=== PATIENT | female | born 1960 | race Caucasian/White ===

== ENCOUNTER 2017-07-13 07:50 | Inpatient (IN) ==
[2017-07-13] MEDS ORDERED: PNEUMOCOCCAL 23 VACCINE 25 MCG/0.5 ML VIAL IM ONE (11:03)
--- NOTE | 2017-07-13 12:54 | CONSULT ---
Consult Note - Consult Consult Date: 07/13/17 Reason for Consult: PreOp Consulation : General Surgery Requesting Physician: Dr. Mayfield Primary Care Provider: TALAT MADSEN - History of Present Illness History of Present Illness: This is a 57-year-old female who I been asked to evaluate for possible small bowel obstruction secondary to Crohn's disease. Patient initially was seen in the hospital and less [place]. At that point she had a flatplate and upright of the abdomen which showed bowel obstruction. Patient subsequent had a CT scan with IV contrast but no oral contrast which was read as a thickened bowel and possible bowel obstruction. Unfortunately the CAT scans and x-rays did not accompany the patient on transfer. When talking to the patient she states that she actually is feeling better after the NG tube was placed. She initially went to the hospital because she has have an increasing abdominal pain. She states her abdomen is distended. Patient was nauseated but has not thrown up. Patient's last bowel movement was today. Her discomforts actually started last night the day prior to admission. Patient is have a long standing history of Crohn's disease. She states she's had 1 bowel resection secondary to this. Patient also had a hysterectomy. Patient had a incisional hernia repair with mesh. Subsequent the mesh had to be removed. Review of Systems - Constitutional Constitutional: REPORTS: Negative System Review - Integumentary Integumentary: REPORTS: Negative System Review - Eye Exam Eye Exam: REPORTS: Negative System Review - Ear/Nose Exam Ear/Nose Exam: REPORTS: Negative System Review - Mouth/Throat Mouth/Throat Exam: REPORTS: Negative System Review - Respiratory Respiratory: REPORTS: Other (Patient has a history of COPD) - Cardiovascular Cardiovascular: REPORTS: Negative System Review - Gastrointestinal Gastrointestinal / Abdominal: REPORTS: Nausea - Genitourinary Genitourinary: REPORTS: Negative System Review - Gynecological Gynecological: REPORTS: Negative System Review - Musculoskeletal Musculoskeletal: REPORTS: Negative System Review - Neurological Neurologic: REPORTS: Negative System Review - Psychiatric Psychiatric: REPORTS: Negative System Review Past Medical History Medical History: copd,chron, Surgical History: Bowel resection, hysterectomy, ventral hernia repair, removal of mesh Tobacco Use: Current Every Day Smoker In the Past 12 Months, Have Used or Abuse Any of the Following Substance: None Medication / Allergies Allergies/Adverse Reactions: Allergies 3 Allergy/AdvReac Type Severity Reaction Status Date / Time azithromycin [From Zithromax] Allergy RASH Verified 07/13/17 11:32 doxycycline Allergy RASH Verified 07/13/17 11:32 prednisone AdvReac VOMITING Verified 07/13/17 11:31 Exam - Vitals Vital Signs: Vital Signs Temperature 97.8 F Temperature Source Temporal Artery Scan Pulse Rate [Pulse Oximeter] 91 Pulse Rate 86 Respiratory Rate 16 Blood Pressure [Right Arm] 118/75 Blood Pressure 97/59 Pulse Ox 92 Oxygen Flow Rate 8 Oxygen Delivery Method Blow-By Height 5 ft 8 in Weight 106 lb 12.8 oz - General General Appearance: No Acute Distress, Cooperative - Head Head Exam: Normal Inspection - Eye Eye Exam: POSITIVE: Normal Appearance, PERRL - Respiratory Respiratory Exam: POSITIVE: Clear to Auscultation - Bilaterally, Breathing Non Labored - Cardiovascular Cardiovascular Exam: POSITIVE: No Murmur - GI/Abdominal GI/Abdominal Exam: POSITIVE: Normal Bowel Sounds, Non Tender, Non Distended, Soft - Rectal Rectal Exam: POSITIVE: Deferred - External Exam: POSITIVE: Deferred Assessment and Plan - Patient Problems (1) Small intestine obstruction Current Visit: Yes Status: Acute Code(s): K56.609 - Unspecified intestinal obstruction, unspecified as to partial versus complete obstruction (2) Crohns disease Current Visit: Yes Status: Acute Code(s): K50.90 - Crohn's disease, unspecified, without complications (3) COPD (chronic obstructive pulmonary disease) Current Visit: Yes Status: Acute Code(s): J44.9 - Chronic obstructive pulmonary disease, unspecified - Assessment / Plan Additional Assessment/Plan Details: At this point is unsure whether the patient has small bowel obstruction secondary to adhesions versus Crohn's disease. This also can be an exasperation of the Crohn's disease with outlet obstruction. I think the patient does need a repeat CT scan with oral contrast.
[2017-07-13] MEDS ORDERED: methylPREDNISolone 125 MG/2 ML VIAL IVP ONE (13:41)
[2017-07-13] MEDS ORDERED: HYDROmorphone 2 MG/1 ML IVP PRN ×2 (13:41→15:20)
[2017-07-13] MEDS ORDERED: methylPREDNISolone 40 MG/1 ML VIAL IVP SCH (13:45)
--- NOTE | 2017-07-13 13:58 | PDOC ---
HPI - History of Present Illness History of Present Illness: This very nice 57-year-old female from which the hospitalist service Contacted by Dr. brandy Sheth for possible direct admit from [place] Dr. brandy Sheth excepted the this patient with history of Crohn's disease for evaluation of possible bowel obstruction in [place] she had a upright x-ray which revealed bowel obstruction also received a CT scan with IV contrast but no oral contrast which was read as possible bowel obstruction this morning she did have a bowel movement she has been having 1516 bowel movements a day in the last week. Patient is complaining of some nausea but overall she is feeling better now and just had her second CT scan with oral contrast She does not tolerate oral prednisone and the matter that she throws it up but she does tolerate IV prednisone usually when she has exacerbations she is also in pain but on physical exam her abdomen is soft Past Medical History Medical History: copd,chron, Surgical History: Bowel resection, hysterectomy, ventral hernia repair, removal of mesh Tobacco Use: Current Every Day Smoker In the Past 12 Months, Have Used or Abuse Any of the Following Substance: None Medication / Allergies Allergies/Adverse Reactions: Allergies 3 Allergy/AdvReac Type Severity Reaction Status Date / Time azithromycin [From Zithromax] Allergy RASH Verified 07/13/17 11:32 doxycycline Allergy RASH Verified 07/13/17 11:32 prednisone AdvReac VOMITING Verified 07/13/17 11:31 Review of Systems - Review of Systems All Systems: Reviewed & No Additional Complaints Except as Stated - Constitutional Constitutional: REPORTS: General Health Fair - Respiratory Respiratory: DENIES: Negative System Review, Cough, Sputum, Dyspnea At Rest, Dyspnea with Exertion, Pleuritic Pain, Hemoptysis, Wheezing, Other, See HPI - Gastrointestinal Gastrointestinal / Abdominal: REPORTS: Nausea, Abdominal Pain Exam - Vitals Vital Signs: Vital Signs Temperature 97.8 F Temperature Source Temporal Artery Scan Pulse Rate [Pulse Oximeter] 91 Pulse Rate 86 Respiratory Rate 16 Blood Pressure [Right Arm] 118/75 Blood Pressure 97/59 Pulse Ox 92 Oxygen Flow Rate 8 Oxygen Delivery Method Blow-By Height 5 ft 8 in Weight 106 lb 12.8 oz - General General Appearance: No Acute Distress, Cooperative - Head Head Exam: Normal Inspection, Normocephalic, Atraumatic - Eye Eye Exam: POSITIVE: Normal Appearance, PERRL, EOMI, No Scleral Icterus - ENT ENT Exam: POSITIVE: Normal Exam, Normal External Ear Exam, Normal Oropharynx, TM 's Normal Bilaterally, Mucous Membranes Moist - Neck Neck Exam: Normal Inspection, Full ROM, No Tenderness, No Lymphadenopathy, No Thyromegaly, JVP is not Raised - Respiratory Respiratory Exam: POSITIVE: Clear to Auscultation - Bilaterally, Breathing Non Labored, Normal To Percussion, Normal to Percussion and Palpation - Cardiovascular Cardiovascular Exam: POSITIVE: RRR, No Murmur, No Clicks, No Gallops, No Rubs, PMI Non-Displaced - GI/Abdominal GI/Abdominal Exam: POSITIVE: Normal Bowel Sounds, Non Tender, Non Distended, Soft, No Masses, No Hepatomegaly, No Splenomegaly, No Organomegaly - Extremities Extremities Exam: POSITIVE: Normal Inspection, Full ROM, Normal Capillary Refill , No Clubbing Present, No Edema Present, No Cyanosis Present, Negative Erica's sign, Dosalis Pedis Pulses - Stong & Regular Assessment and Plan - Patient Problems (1) Exacerbation of Crohn's disease Current Visit: Yes Status: Acute Comment: IV Solu-Medrol, normal saline with 20 K, pain control repeat CT scan check B12 level we will await the results and defer to general surgery if this is truly obstruction or not Code(s): K50.90 - Crohn's disease, unspecified, without complications (2) Crohns disease Current Visit: Yes Status: Acute Code(s): K50.90 - Crohn's disease, unspecified, without complications
[2017-07-13] MEDS ORDERED: ONDANSETRON 4 MG/2 ML VIAL ONE ×2 (14:16→19:09)
[2017-07-13] MEDS ORDERED: ONDANSETRON 4 MG/2 ML VIAL IVP PRN ×2 (14:26→15:20)
[2017-07-13] MEDS ORDERED: NORMAL SALINE 10 ML SYRINGE FLUSH IVP PRN ×4 (14:28→19:40)
[2017-07-13] MEDS ORDERED: LIDOCAINE W/ SODIUM BICARB 0.5 ML SYR SUBD PRN (14:33)
[2017-07-13] MEDS ORDERED: Lactated Ringers 1,000 ML PRIMARY IV SCH (14:45)
[2017-07-13] MEDS ORDERED: fentaNYL Inj 250 MCG/5 ML VIAL ONE (15:03)
[2017-07-13] MEDS ORDERED: PROPOFOL 10 MG/1 ML (200 MG/20 ML) VIAL IV ONE (15:03)
[2017-07-13] MEDS ORDERED: MIDAZOLAM 5 MG/1 ML ONE (15:03)
[2017-07-13] MEDS ORDERED: KETAMINE 100 MG/1 ML - 5 ML ONE (15:03)
[2017-07-13] MEDS ORDERED: ROCURONIUM 10 MG/1 ML - 5 ML VIAL IVP ONE (15:06)
[2017-07-13] MEDS ORDERED: LIDOCAINE MPF 2% - 5 ML (20 MG/1 ML) ONE (15:08)
[2017-07-13] MEDS ORDERED: LIDOCAINE W/ SODIUM BICARB 0.5 ML SYR ONE (15:14)
[2017-07-13] MEDS ORDERED: IPRATROPIUM/ALBUTEROL SULFATE 3 ML NEB NEB ONE ×2 (15:18→16:04)
[2017-07-13] MEDS ORDERED: Ondansetron ODT Tab 8 MG TAB PO PRN (15:20)
[2017-07-13] MEDS ORDERED: ATROPINE SULFATE 0.4 MG/1 ML VIAL IVP PRN (15:20)
[2017-07-13] MEDS ORDERED: fentaNYL Inj 100 MCG/2 ML VIAL IVP PRN (15:20)
--- NOTE | 2017-07-13 15:31 | DI ---
CT Abdomen/Pelvis WO Contrast,07/13/2017 10:54 AM: Clinical History: Crohn's disease and symptoms of bowel obstruction. Previous Exam: August 02, 2007 Findings: Multiple helically acquired CT images are obtained through the abdomen and pelvis following the oral administration of Gastrografin. There was poor progression of Gastrografin throughout. There are multiple dilated, fluid-filled loops of small bowel throughout with maximum small bowel giancarlo meter measuring approximately 4.5 cm. There is fluid within the deep pelvis. There is also a transition point within the right lower quadra nt approximately 10 cm from the terminal ileum in the region of some postsurgical change consistent w ith a high-grade obstruction. The colon is completely decompressed without any significant amount of air. The liver and gallbladder are unremarkable although there is some layering density within the gallbla dder. The spleen, adrenals and kidneys are unremarkable. Pancreas is also unremarkable. Are unremarkable. Impression: High-grade obstruction with a transition point in the right lower quadrant approximately 10 cm from t he terminal ileum.
--- NOTE | 2017-07-13 15:33 | PDOC(PROG) ---
Date and Time of Service: 07/13/2017 at 1440 Interval History: After looking at the patient's x-rays she does have a high-grade stricture seen had a previous anastomosis and has massively dilated small bowel. Patient states that since having oral contrast she does feel worse. I think the best is a taken to surgery to get the bowel resection and free up this anastomosis. Risks and benefits were explained to her she understands these. Objective : Data - Vital Signs Vital Signs and I&O: Vital Signs - Last Taken Temperature 97.8 F 07/13/17 12:24 Pulse Rate 86 07/13/17 12:24 Respiratory Rate 16 07/13/17 12:24 Blood Pressure 97/59 07/13/17 12:24 Pulse Ox 92 07/13/17 12:24 Assessment and Plan - Patient Problems (1) Small intestine obstruction Current Visit: Yes Status: Acute Code(s): K56.609 - Unspecified intestinal obstruction, unspecified as to partial versus complete obstruction (2) Crohns disease Current Visit: Yes Status: Acute Code(s): K50.90 - Crohn's disease, unspecified, without complications (3) COPD (chronic obstructive pulmonary disease) Current Visit: Yes Status: Acute Code(s): J44.9 - Chronic obstructive pulmonary disease, unspecified
[2017-07-13] MEDS ORDERED: PHENYLEPHRINE 10,000 MCG/1 ML VIAL ONE (15:44)
[2017-07-13] MEDS ORDERED: ePHEDrine Inj 50 MG/ML AMP ONE (15:44)
[2017-07-13] MEDS ORDERED: ERTAPENEM 1 GM VIAL ONE (15:48)
[2017-07-13] MEDS ORDERED: Sodium Chloride 0.9% 100 ML IV ONE (15:48)
[2017-07-13] MEDS ORDERED: Ertapenem Inj 1 GM in Sodium Chloride 0.9% 100 ML IV SCH (16:15)
[2017-07-13] MEDS ORDERED: Lactated Ringers 2,000 ML PRIMARY IV ONE (17:13)
[2017-07-13] MEDS ORDERED: Sodium Chloride 0.9% vial 20 ML ONE (17:50)
[2017-07-13] MEDS ORDERED: BUPivacaine Liposome/PF (Exparel) Inj 20ml vial INFIL ONE (17:50)
[2017-07-13] MEDS ORDERED: DEXAMETHASONE PF 10 MG/1 ML VIAL ONE (17:56)
--- NOTE | 2017-07-13 18:36 | GEN.OPNOTE ---
Operative Note Surgery Date: 07/13/17 Preoperative Diagnosis: Small bowel obstruction. 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 Crohn's disease Procedure: Small bowel resection with an enteral - colic anastomosis Surgeon: Maxx Castillo MD Director Of Diagnostic Imaging: Nirmal Gagnon MD Anesthesia Provider: Gifty Jasmine CRNA Anesthesia Type: General Estimated Blood Loss (mL): 450 Fluids: 2800 cc of crystalloid. 1 g of Invanz Pathology: Small bowel sent Indications: Visit the patient has known Crohn's disease comes in with a complete obstruction. Findings: Patient is brought in operative room. Placed supine position. Given general endotracheal anesthesia. Prepped draped sterile fashion. Timeout performed per protocols. Midline skin incision was made through previous scar. I did excise the scar. Hemostased and left cautery dissection to Marcelino Ks tissue electrocautery patient did have a small piece of mesh just below the umbilicus. I opened up the abdominal wall fascia in the midline using sharp dissection. Handed the abdominal cavity sharp dissection. Patient has a few adhesions of omentum to the abdominal wall. These were out of the way and I opened up the midline he is electrocautery. I then took down adhesions of the omentum to the abdominal wall with sharp dissection. Allen retractor was in place. Patient had some adhesions of the small bowel down to the pelvis. These were taken down with electrocautery. There is adhesion of the epiploic fat of the left colon to the small bowel which is takedown left cautery. Patient had dilated bowel. Patient had a wad of bowel that appeared to be up against obvious inflammatory bowel disease. Patient had dense adhesions that were encountered. I started take down these adhesions. At this point we got into what appeared to be an enteric enteric fistula. . I then sutured the 2 ends of the fistula with 2-0 Vicryl suture. This is done to control contamination. I then freed up additional adhesions to totally mobilize the small bowel. There was noted be a small defect in the serosa of the small bowel. This was not a through and through enterotomy. I did oversew the serosa injury with simple interrupted 2- 0 Vicryl sutures. The small bowel besides infected area and the fistula appeared be normal. I dissected out a small area in the mesentery of the small bowel. I then placed the [facility] linear stapler to divide the small bowel. We then clamped divided the mesentery from this area all the way to the cecum. We then mobilize the cecum and with electrocautery taking down its retroperitoneal attachments. This allowed us to place a TLC stapler across and thus dividing the cecum. The small bowel was handed off as a surgical specimen. I then mobilize more of the right colon. This allowed us to give a good area for anastomosis. Before doing anastomosis a completely ran the small bowel there is no other apparent injuries to the bowel or any active inflammatory bowel disease. Entire colon appeared be normal. Patient had had a hysterectomy and we did not notice any tissue that appeared to be ovaries. I then lined up the antimesenteric to antimesenteric borders of the colon and small bowel. Opened up the end of the staple line. Placed the TLC linear stapler and created an anastomosis. He is the [place] a 60 stapler to complete the anastomosis. Using 2-0 Vicryl put a straight stitch in the crotch of the anastomosis takes tension off the suture line. I then closed the mesenteric defect using 2-0 Vicryl simple sutures. We irrigated until clear. There is no active bleeding. I placed omentum over the entire small bowel. Closed the midline incision using 0 Prolene continues running suture. Skin was irrigated. Skin was closed with skin cinthya. 20 mL of Exoprel was diluted out to 40 mL an infiltrated into the Marcel[place]s tissue for postoperative pain control. Sterile dressing was applied. All counts were correct. Patient transferred recovery room in stable condition Patient Problems - Patient Problem List (1) Small intestine obstruction Current Visit: Yes Status: Acute Code(s): K56.609 - Unspecified intestinal obstruction, unspecified as to partial versus complete obstruction Category: Medical (2) Crohns disease Current Visit: Yes Status: Acute Code(s): K50.90 - Crohn's disease, unspecified, without complications Category: Medical (3) COPD (chronic obstructive pulmonary disease) Current Visit: Yes Status: Acute Code(s): J44.9 - Chronic obstructive pulmonary disease, unspecified Category: Medical Procedure Codes - Surgical Procedures Primary Surgical Procedure: 56273 : Enterectomy, Resection Sm Bowel
--- NOTE | 2017-07-13 18:46 | CRNA.PROGR ---
Anesthesia Time - - Start date: 07/13/17 End date: 07/13/17 - Procedure/Recovery Time Anesthesia : Time In: 15:26 Anesthesia : Time Out: 18:17 Anesthesia : Total Time: 171 - Total Anesthesia Time Total Anesthesia Time (minutes): 171 - Other Weight: 48.444 kg Height: 5 ft 8 in Body Mass Index (BMI): 16.2 Physical Status: P3 (tobacco, Bowel obstruction, poor nutritional status.) Anesthesia Type: General Anesthesia : ET
--- NOTE | 2017-07-13 18:47 | CRNA.PROGR ---
Anesthesia Recovery Phase I - Post Anesthesia Evaluation Patient's Condition on Arrival in Phase I: Stable Patient's Condition on Arrival in Phase II: Stable Pain Level: 2 (sleepy, Vital signs stable. Cardiodynamics satisfactory.)
[2017-07-13] MEDS: KETOROLAC 15 MG/1 ML VIAL IVP PRN (20:38)
[2017-07-13] MEDS: D5-1/2NS + 20mEq KCL 1,000 ML PRIMARY IV SCH (20:43)
[2017-07-13] MEDS: Famotidine Inj 20 MG in Normal Saline Flush 10 ML IVP SCH (20:43)
[2017-07-13] MEDS: Acetaminophen 1000mg Inj 1,000 MG/100 ML VIAL IV PRN (23:02)
[2017-07-14] MEDS: KETOROLAC 15 MG/1 ML VIAL IVP PRN (03:09)
[2017-07-14] MEDS: ONDANSETRON 4 MG/2 ML VIAL IVP PRN ×2 (03:09→19:52)
[2017-07-14] MEDS: D5-1/2NS + 20mEq KCL 1,000 ML PRIMARY IV SCH ×3 (03:42→18:06)
[2017-07-14 05:08] LABS: BASOPHILS # (AUTO) 0.02 10*3/UL; BASOPHILS % (AUTO) 0.1 % (0-1); EOSINOPHILS # (AUTO) 0 10*3/UL; EOSINOPHILS % (AUTO) 0 % (0-8); Hematocrit [HCT] 44.4 % (37.0-47.0); Hemoglobin [HGB] 14.3 g/dL (12.0-16.0); LYMPHOCYTES # (AUTO) 0.47 10*3/uL; MEAN CORPUSCULAR HGB CONC 32.2 g/dL (33-37); MEAN CORPUSCULAR VOLUME 93.3 FL (81-99); MEAN PLATELET VOLUME 9.7 FL (7.4-12.2); MONOCYTES % (AUTO) 3.3 % (5-15); NEUTROPHILS # (AUTO) 23.06 10*3/UL; NEUTROPHILS % (AUTO) 94.4 % (50-80); RED BLOOD COUNT 4.76 10^6/uL (4.20-5.40)
[2017-07-14 05:17] LABS: BLOOD UREA NITROGEN 11 mg/dL (7-22); BUN/CREATININE RATIO 18.33 (6-20)
[2017-07-14 05:41] LABS: PLATELET MORPHOLOGY COMMENT NORMAL MORPHOLOGY (NORM); RBC MORPHOLOGY COMMENT NORMAL MORPHOLOGY (NORM)
[2017-07-14 05:42] LABS: WBC MORPHOLOGY COMMENT SEE COMMENTS (NORM)
[2017-07-14] MEDS: Acetaminophen 1000mg Inj 1,000 MG/100 ML VIAL IV PRN (07:25)
[2017-07-14] MEDS: MORPHINE SULFATE 2 MG/1 ML IVP PRN ×7 (07:30→19:52)
--- NOTE | 2017-07-14 08:58 | CRNA.PROGR ---
Anesthesia Note - Progress Notes Anesthesia Progress Note: Lying in bed. Easily awakened. States not nauseated. States some abdominal pain R lower quadrant. Encouraged to cough and deep breathe. Encouraged to splint abdomen when coughing. Encouraged to be up with assistance. Baumann still in. Very light colored urine Intake and Output (24hr x 4 totals) 07/12/17 07/13/17 07/14/17 07/15/17 05:59 05:59 05:59 05:59 Intake Total 3942 / 3942 Output Total 1000 / 1000 Balance 2942 / 2942 Laboratory Results 07/13/17 07/14/17 07/14/17 Range/Units 14:44 04:33 04:33 WBC 24.43 H (4.8-10.8) 10^3/uL RBC 4.76 (4.20-5.40) 10^6/uL Hgb 14.3 (12.0-16.0) g/dL Hct 44.4 (37.0-47.0) % MCV 93.3 (81-99) FL MCH 30.0 (27-31) PG MCHC 32.2 L (33-37) g/dL RDW Std Deviation 51.7 H (39-50) fL RDW Coeff of Sandra 15.4 H (11.5-14.5) % Plt Count 445 H (140-350) 10*3/uL MPV 9.7 (7.4-12.2) FL Immature Gran % (Auto) 0.3 (0-5) % Neut % (Auto) 94.4 H (50-80) % Lymph % (Auto) 1.9 L (10-50) % [place] % (Auto) 3.3 L (5-15) % Eos % (Auto) 0 (0-8) % Baso % (Auto) 0.1 (0-1) % Immature Gran # (Auto) 0.08 10*3/UL Neut # (Auto) 23.06 10*3/UL Lymph # (Auto) 0.47 10*3/uL [place] # (Auto) 0.80 (0.3-0.8) 10*3/UL Eos # (Auto) 0 10*3/UL Baso # (Auto) 0.02 10*3/UL WBC Morphology Comment See comments (NORM) Plt Morphology Comment Normal morphology (NORM) RBC Morph Comment Normal morphology (NORM) PT 10.8 (9.7-11.4) secs INR 1.02 (0.00-5.90) N/A APTT 28.7 (22.6-36.2) SECS Sodium 136 (135-145) meq/L Potassium 4.1 (3.8-5.2) meq/L Chloride 108 (98-112) meq/L Carbon Dioxide 20 L (23-33) meq/L Anion Gap 8 (5-20) BUN 11 (7-22) mg/dL Creatinine 0.6 (0.50-1.20) mg/dL Estimated GFR > 60 (>60 ml/min/1.73m(2)) BUN/Creatinine Ratio 18.33 (6-20) Glucose 183 H (78-110) mg/dL Calculated Osmolality 285.0 (267-292) mOsm/kg Calcium 7.5 L (8.7-10.7) mg/dL Vital Signs - Last Taken Temperature 97.6 F 07/14/17 06:52 Pulse Rate 94 07/14/17 07:47 Respiratory Rate 18 07/14/17 07:44 Blood Pressure 90/57 07/14/17 06:52 Pulse Ox 90 07/14/17 06:52 present in tubing. Needs pulmonary coaching and pulmonary toilet i.e. cough and deep breathe. Believe her pulmonary disease is more significant than stated. No apparent anesthetic difficulties at this point. Gifty Jasmine MS, SENIOR COURTROOM CLERK
--- NOTE | 2017-07-14 09:26 | PDOC(PROG) ---
Subjective Post Op Day: postop day 1 Pain Management: Toradol, acetaminophen IV morphine Baumann Catheter: Yes Flatus: No Diet: NPO Ambulating: Yes Date and Time of Service: 07/14/2017 at 8: 45 Interval History: Patient states that she feels a lot better. Does not like to have the NG tube in place. Not passed flatus. Is afebrile Objective : Data - Labs CBC and BMP: 07/14/17 04:33 07/14/17 04:33 - Vital Signs Vital Signs and I&O: Vital Signs - Last Taken Temperature 97.6 F 07/14/17 06:52 Pulse Rate 94 07/14/17 07:47 Respiratory Rate 18 07/14/17 07:44 Blood Pressure 90/57 07/14/17 06:52 Pulse Ox 90 07/14/17 06:52 Intake and Output (24hr x 4 totals) 07/12/17 07/13/17 07/14/17 07/15/17 05:59 05:59 05:59 05:59 Intake Total 3942 / 3942 Output Total 1000 / 1000 Balance 2942 / 2942 Objective : Exam - General General Appearance: No Acute Distress, Cooperative - Eye Eye Exam: Normal Appearance - Respiratory Respiratory Exam: Clear to Auscultation - Bilaterally, Breathing Non Labored - Cardiovascular Cardiovascular Exam: RRR - GI/Abdominal GI/Abdominal Exam: Non Tender, Non Distended, Soft Additional GI/Abdominal Exam Details: Dressings are dry. Patient is incisional pain only. I do not hear bowel sounds today Assessment and Plan - Patient Problems (1) Small intestine obstruction Current Visit: Yes Status: Acute Code(s): K56.609 - Unspecified intestinal obstruction, unspecified as to partial versus complete obstruction (2) Crohns disease Current Visit: Yes Status: Acute Code(s): K50.90 - Crohn's disease, unspecified, without complications (3) COPD (chronic obstructive pulmonary disease) Current Visit: Yes Status: Acute Code(s): J44.9 - Chronic obstructive pulmonary disease, unspecified (4) Status post small bowel resection Current Visit: Yes Status: Acute Code(s): Z90.49 - Acquired absence of other specified parts of digestive tract - Assessment / Plan Additional Assessment/Plan Details: Overall the patient is doing very well. Patient has an elevated white count we' ll continue the Invanz. We'll DC the NG tube. Started on ice chips. Patient is requesting a nicotine patch, will be deferred this to the hospitalist. Encourage patient to deep breathe and cough. Have rest her therapy work on her for her breathing. Encourage ambulation. Dr. Fowler covering into July 19
[2017-07-14] MEDS: Famotidine Inj 20 MG in Normal Saline Flush 10 ML IVP SCH ×2 (10:14→20:04)
[2017-07-14] MEDS: HEPARIN 5000 UNIT/1 ML SUBCUT SCH ×3 (10:14→22:59)
--- NOTE | 2017-07-14 10:19 | PDOC(PROG) ---
Interval History: Doing well ambulated hallway we will take out Baumann patient most likely will be able to use the restroom feels much better than yesterday Objective : Data - Labs CBC and BMP: 07/14/17 04:33 07/14/17 04:33 Objective : Exam - Respiratory Respiratory Exam: Clear to Auscultation - Bilaterally, Breathing Non Labored, Normal To Percussion, Normal to Percussion and Palpation - Cardiovascular Cardiovascular Exam: RRR, No Murmur, No Clicks, No Gallops, No Rubs, PMI Non- Displaced - GI/Abdominal GI/Abdominal Exam: Soft - Extremities Extremities Exam: No Clubbing Present, No Edema Present - Neurological Neurological Exam: Alert, Oriented x 3 Assessment and Plan - Patient Problems (1) Exacerbation of Crohn's disease Current Visit: Yes Status: Acute Comment: Status post bowel resection secondary to severe stricture and fistula continue IV Invanz as per surgery. Stop steroids DC Baumann ice chips as per surgery continued to ambulate Code(s): K50.90 - Crohn's disease, unspecified, without complications (2) Crohns disease Current Visit: Yes Status: Acute Code(s): K50.90 - Crohn's disease, unspecified, without complications
[2017-07-14] MEDS: NICOTINE 14 MG /DAY PATCH TRANSDERM SCH (11:30)
[2017-07-14] MEDS: Ertapenem Inj 1 GM in Sodium Chloride 0.9% 100 ML IV SCH (15:53)
--- NOTE | 2017-07-14 16:53 | CD ---
[facility] [place] Interpretive Statements [email or web address]
[2017-07-15] MEDS: D5-1/2NS + 20mEq KCL 1,000 ML PRIMARY IV SCH ×6 (02:38→23:17)
[2017-07-15] MEDS: MORPHINE SULFATE 2 MG/1 ML IVP PRN ×3 (03:51→09:48)
[2017-07-15 04:57] LABS: Hematocrit [HCT] 41.6 % (37.0-47.0); Hemoglobin [HGB] 13.1 g/dL (12.0-16.0); MEAN CORPUSCULAR HEMOGLOBIN 29.7 PG (27-31); MEAN CORPUSCULAR HGB CONC 31.5 g/dL (33-37); MEAN CORPUSCULAR VOLUME 94.3 FL (81-99); RED BLOOD COUNT 4.41 10^6/uL (4.20-5.40)
[2017-07-15 05:06] LABS: BLOOD UREA NITROGEN 5 mg/dL (7-22); BUN/CREATININE RATIO 8.33 (6-20)
[2017-07-15 05:10] LABS: PLATELET MORPHOLOGY COMMENT SEE COMMENTS (NORM); RBC MORPHOLOGY COMMENT SEE COMMENTS (NORM); WBC MORPHOLOGY COMMENT NORMAL MORPHOLOGY (NORM)
[2017-07-15 05:11] LABS: BAND NEUTROPHILS % 4 % (0-10); BASOPHILS % (MANUAL) 0 % (0-1); EOSINOPHILS % (MANUAL) 1 % (0-8); MONOCYTES % (MANUAL) 2 % (0-12); NEUTROPHILS % (MANUAL) 89 % (50-80)
[2017-07-15] MEDS: HEPARIN 5000 UNIT/1 ML SUBCUT SCH ×2 (06:56→15:59)
[2017-07-15] MEDS: Famotidine Inj 20 MG in Normal Saline Flush 10 ML IVP SCH ×2 (08:01→23:18)
[2017-07-15] MEDS: ONDANSETRON 4 MG/2 ML VIAL IVP PRN ×2 (08:12→17:15)
[2017-07-15] MEDS: Acetaminophen 1000mg Inj 1,000 MG/100 ML VIAL IV PRN (09:25)
[2017-07-15] MEDS ORDERED: HYDROmorphone 2 MG/1 ML IVP PRN (11:05)
--- NOTE | 2017-07-15 11:43 | PDOC(PROG) ---
Interval History: Patient states that she feels better today she did get some sleep she has good pain control and no BMs or gas movement yet Objective : Data - Labs CBC and BMP: 07/15/17 04:03 07/15/17 04:03 Objective : Exam - General General Appearance: Cooperative - Respiratory Respiratory Exam: Clear to Auscultation - Bilaterally, Breathing Non Labored, Normal To Percussion, Normal to Percussion and Palpation - Cardiovascular Cardiovascular Exam: RRR, No Murmur, No Clicks, No Gallops, No Rubs, PMI Non- Displaced - GI/Abdominal GI/Abdominal Exam: Normal Bowel Sounds, Non Tender, Non Distended, Soft, No Masses, No Hepatomegaly, No Splenomegaly, No Organomegaly - Rectal Rectal Exam: Deferred - Neurological Neurological Exam: Alert, Oriented x 3, Reflexes Normal, Normal Gait, CN II-XII Intact, No Facial Droop, Moves All Extremities Equally Assessment and Plan - Patient Problems (1) Exacerbation of Crohn's disease Current Visit: Yes Status: Acute Comment: Status post surgery with resection continue postop as per surgery team orders Code(s): K50.90 - Crohn's disease, unspecified, without complications (2) Crohns disease Current Visit: Yes Status: Acute Comment: We'll need to follow-up with her GI specialist for maintenance medication once she is discharged Code(s): K50.90 - Crohn's disease, unspecified, without complications
[2017-07-15] MEDS: NICOTINE 14 MG /DAY PATCH TRANSDERM SCH (11:44)
[2017-07-15] MEDS: KETOROLAC 15 MG/1 ML VIAL IVP SCH ×2 (11:44→23:18)
--- NOTE | 2017-07-15 11:48 | PDOC(PROG) ---
Subjective Post Op Day: 2 Pain Management: IV morphine and Tylenol Baumann Catheter: No Flatus: No Diet: Clear Liquids (Ice chips so far.) Ambulating: Yes Date and Time of Service: 07/15/2017 11:30 AM Interval History: Reports she is doing better every day. Has pain when she ambulates or coughs. I made some adjustments to her pain medications. She denies nausea or vomiting. No fever or chills. No flatus or bowel movement. She reports she is working on her incentive spirometer. She would like some apple juice. Objective : Data - Labs CBC and BMP: 07/15/17 04:03 07/15/17 04:03 - Vital Signs Vital Signs and I&O: Vital Signs - Last Taken Temperature 98.2 F 07/15/17 11:41 Pulse Rate 99 07/15/17 11:41 Respiratory Rate 20 07/15/17 11:41 Blood Pressure 105/56 07/15/17 11:41 Pulse Ox 90 07/15/17 11:41 Intake and Output (24hr x 4 totals) 07/13/17 07/14/17 07/15/17 07/16/17 05:59 05:59 05:59 05:59 Intake Total 3942 / 3942 3566 / 3566 Output Total 1000 / 1000 500 / 500 Balance 2942 / 2942 3066 / 3066 Objective : Exam - General General Appearance: No Acute Distress, Cooperative - Respiratory Respiratory Exam: Clear to Auscultation - Bilaterally, Breathing Non Labored - Cardiovascular Cardiovascular Exam: RRR, Tachycardia - GI/Abdominal GI/Abdominal Exam: Non Distended, Soft, Hypoactive Bowel Sounds Additional GI/Abdominal Exam Details: The dressing is clean, dry, and intact. Some incisional tenderness. Remainder of the abdomen is soft. No peritoneal signs. - Neurological Neurological Exam: Alert, Oriented x 3 - Psychiatric Psychiatric Exam: Normal Affect, Normal Mood Assessment and Plan - Patient Problems (1) Status post small bowel resection Current Visit: Yes Status: Acute Priority: High Onset Date: 07/13/17 Comment: Overall doing very well. I made some changes to her pain management. Patient has been encouraged to ambulate and use her incentive spirometer. Remains mildly tachycardic. We'll continue to watch. Appears to be well- hydrated. Check a.m. labs. Continue postoperative care. We'll start clear liquids slowly. Discussed with the patient and the hospitalist. Code(s): Z90.49 - Acquired absence of other specified parts of digestive tract
[2017-07-15] MEDS: Ertapenem Inj 1 GM in Sodium Chloride 0.9% 100 ML IV SCH (15:59)
[2017-07-15] MEDS ORDERED: Acetaminophen 1000mg Inj 1,000 MG/100 ML VIAL IV SCH (17:25)
[2017-07-15] MEDS ORDERED: KETOROLAC 15 MG/1 ML VIAL IVP SCH (19:00)
[2017-07-15] MEDS ORDERED: Prochlorperazine Edisylate Inj 10mg/2ml vial IVP PRN (19:04)
[2017-07-15] MEDS ORDERED: Sodium Chloride 0.9% 1,000 ML PRIMARY IV ONE (19:28)
[2017-07-15 19:35] LABS: Hematocrit [HCT] 31.2 % (37.0-47.0); Hemoglobin [HGB] 9.9 g/dL (12.0-16.0)
[2017-07-15] MEDS ORDERED: Sodium Chloride 0.9% 500 ML PRIMARY IV ONE ×4 (19:42→21:03)
--- NOTE | 2017-07-15 20:41 | PDOC(PROG) ---
Date and Time of Service: 07/15/2017 8:15 PM Interval History: The nursing staff called and said the patient had approximately 200 mL of bright red blood per rectum. She was more tachycardiac at 130. Blood pressure was lower at 100/55. I asked them to stop her heparin and her Toradol and get a stat hemoglobin and hematocrit. Her H&H came back at 9.9 and 31.2. This morning she was 13.1 and 41.6. I ordered the patient to get 2 units of packed red blood cells and 1 unit of fresh frozen plasma. I arrived to see the patient. Patient tells me the last time she had surgery she had bleeding until the heparin was stopped. She says she has an undiagnosed bleeding disorder.. She does not have any acute or new abdominal pain. She has been a little nauseated. No real change other than the bright red blood per rectum. Objective : Data - Labs CBC and BMP: 07/15/17 19:30 07/15/17 04:03 - Vital Signs Vital Signs and I&O: Vital Signs - Last Taken Temperature 97.6 F 07/15/17 16:45 Pulse Rate 108 H 07/15/17 16:45 Respiratory Rate 20 07/15/17 16:45 Blood Pressure 90/58 07/15/17 16:45 Pulse Ox 91 07/15/17 16:45 Intake and Output (24hr x 4 totals) 07/13/17 07/14/17 07/15/17 07/16/17 05:59 05:59 05:59 05:59 Intake Total 3942 / 3942 3566 / 3566 2122 Output Total 1000 / 1000 600 / 600 Balance 2942 / 2942 2966 / 2966 2122 Objective : Exam - General General Appearance: No Acute Distress, Cooperative Additional General Exam Details: Pale. - Respiratory Respiratory Exam: Clear to Auscultation - Bilaterally, Breathing Non Labored - Cardiovascular Cardiovascular Exam: No Murmur, Tachycardia - GI/Abdominal GI/Abdominal Exam: Non Distended, Soft, Hypoactive Bowel Sounds Additional GI/Abdominal Exam Details: The dressing is clean and dry and intact. The abdomen is soft and nondistended. Incisional tenderness only. Not an acute surgical abdomen. - Rectal Rectal Exam: Deferred - Neurological Neurological Exam: Alert, Oriented x 3 - Psychiatric Psychiatric Exam: Normal Affect, Normal Mood Assessment and Plan - Patient Problems (1) Status post small bowel resection Current Visit: Yes Status: Acute Priority: High Onset Date: 07/13/17 Comment: Patient appears to have an anastomotic bleed. Hopefully this will be a self-limiting process. The heparin and Toradol have been stopped. The patient will get 2 units of packed cells and one unit of fresh frozen plasma and we well monitor her carefully. I have transferred her to the intensive care unit. Hemoglobin and hematocrit have been ordered for 1 hour after the second unit. A.m. labs have been ordered. I discussed the need for blood products with the patient. She gave me consent for transfusion. I have told the patient that if she needs more than 4 units of blood she will need to go back to surgery. I have discussed all the above with the hospitalist Dr. Garcia as well. Code(s): Z90.49 - Acquired absence of other specified parts of digestive tract (2) Hemorrhage of surgical anastomosis site of digestive tract Current Visit: Yes Status: Acute Priority: High Onset Date: 07/15/17 Comment: See above. Monitor carefully. Code(s): K91.841 - Postprocedural hemorrhage of a digestive system organ or structure following other procedure
[2017-07-15] MEDS ORDERED: NORMAL SALINE 10 ML SYRINGE FLUSH IVP PRN (21:03)
[2017-07-15] MEDS ORDERED: Sodium Chloride 0.9% 500 ML ONE (21:13)
[2017-07-15] MEDS ORDERED: HYDROmorphone 2 MG/1 ML ONE (21:17)
[2017-07-15] MEDS: HYDROmorphone 2 MG/1 ML IVP PRN (21:25)
[2017-07-16] MEDS: ONDANSETRON 4 MG/2 ML VIAL IVP PRN ×2 (00:15→21:17)
[2017-07-16] MEDS: HYDROmorphone 2 MG/1 ML IVP PRN ×3 (00:35→22:44)
[2017-07-16] MEDS: Acetaminophen 1000mg Inj 1,000 MG/100 ML VIAL IV SCH ×3 (03:44→17:25)
[2017-07-16 05:10] LABS: BASOPHILS # (AUTO) 0.02 10*3/UL; BASOPHILS % (AUTO) 0.1 % (0-1); EOSINOPHILS # (AUTO) 0.17 10*3/UL; EOSINOPHILS % (AUTO) 1.1 % (0-8); Hematocrit [HCT] 34.1 % (37.0-47.0); Hemoglobin [HGB] 11.1 g/dL (12.0-16.0); LYMPHOCYTES # (AUTO) 0.51 10*3/uL; MEAN CORPUSCULAR HGB CONC 32.6 g/dL (33-37); MEAN CORPUSCULAR VOLUME 92.2 FL (81-99); MEAN PLATELET VOLUME 9.7 FL (7.4-12.2); MONOCYTES # (AUTO) 0.39 10*3/UL (0.3-0.8); MONOCYTES % (AUTO) 2.6 % (5-15); NEUTROPHILS # (AUTO) 14.16 10*3/UL; NEUTROPHILS % (AUTO) 92.7 % (50-80)
[2017-07-16 05:17] LABS: PLATELET MORPHOLOGY COMMENT NORMAL MORPHOLOGY (NORM); RBC MORPHOLOGY COMMENT NORMAL MORPHOLOGY (NORM); WBC MORPHOLOGY COMMENT NORMAL MORPHOLOGY (NORM)
[2017-07-16 05:27] LABS: BLOOD UREA NITROGEN 9 mg/dL (7-22)
[2017-07-16] MEDS ORDERED: Famotidine Inj 20 MG in Normal Saline Flush 10 ML IVP SCH (09:00)
[2017-07-16] MEDS: D5-1/2NS + 20mEq KCL 1,000 ML PRIMARY IV SCH ×2 (09:25→13:45)
[2017-07-16] MEDS: NICOTINE 14 MG /DAY PATCH TRANSDERM SCH (10:56)
[2017-07-16] MEDS: Patch Removal PATCH TRANSDERM SCH (10:57)
--- NOTE | 2017-07-16 11:46 | PDOC(PROG) ---
Interval History: Patient looks the good resting I've talked to her about her emphysema she said she's had this for a long time and she is always short of breath we have seen in here that even with the short distances of ambulation she desats into the 80s and at one time into the 70s most likely the patient needs oxygen even at home I cannot find any records of pulmonary function test done. In regards to her bleeding she had 2 more episodes of small amount of blood according to nursing H&H is stable status post 2 units of blood. Objective : Data - Labs CBC and BMP: 07/16/17 04:35 07/16/17 04:35 Objective : Exam - General General Appearance: No Acute Distress, Cooperative - Respiratory Respiratory Exam: Clear to Auscultation - Bilaterally, Decreased Breath Sounds - Cardiovascular Cardiovascular Exam: RRR, No Murmur, No Clicks, No Gallops, No Rubs, PMI Non- Displaced - GI/Abdominal GI/Abdominal Exam: Normal Bowel Sounds, Non Tender, Non Distended, Soft, No Masses, No Hepatomegaly, No Splenomegaly, No Organomegaly - Extremities Extremities Exam: No Edema Present, No Cyanosis Present - Neurological Neurological Exam: Alert, Oriented x 3, CN II-XII Intact - Psychiatric Psychiatric Exam: Normal Affect Assessment and Plan - Patient Problems (1) Exacerbation of Crohn's disease Current Visit: Yes Status: Acute Comment: Status post surgery doing well had the small drop in H&H was transfused 2 units patient was symptomatic with tachycardia and hypotension H&H is now stable Dr. Fowler general surgery following in this regard Toradol and subcutaneous heparin for DVT prophylaxis was stopped. 2 more small amounts of blood according to nursing deferred to surgery team Code(s): K50.90 - Crohn's disease, unspecified, without complications (2) COPD (chronic obstructive pulmonary disease) Current Visit: Yes Status: Acute Comment: Patient said she had a CAT scan about 2 years ago and does not know the results this was done in [place] I will put her back on Advair and Spiriva ultimately will probably need CT scan of her chest will discuss with the Dr. Fowler in case he needs to order CT scans as well. Code(s): J44.9 - Chronic obstructive pulmonary disease, unspecified (3) Hypoalbuminemia due to protein-calorie malnutrition Current Visit: Yes Status: Acute Comment: Attending patient and has some malnutrition considering Crohn's also low albumin will give 1 dose of IV albumin which will also help with blood pressure her urine output as improved to about 700 Code(s): E46 - Unspecified protein-calorie malnutrition
[2017-07-16] MEDS ORDERED: Albumin Human Soln 25% 25 GM/100 ML IV.SOLN IV ONE ×2 (11:47→18:35)
[2017-07-16] MEDS ORDERED: Magnesium Sulfate 2gm (Premix) 2 GM/50 ML BAG IV ONE (11:52)
[2017-07-16 12:06] LABS: Hematocrit [HCT] 35.3 % (37.0-47.0); Hemoglobin [HGB] 11.3 g/dL (12.0-16.0)
[2017-07-16] MEDS: LEVALBUTEROL HCL 1.25 MG/3 ML NEB PRN (12:10)
--- NOTE | 2017-07-16 13:25 | PDOC(PROG) ---
Subjective Post Op Day: 3 Pain Management: IV Dilaudid and Tylenol Baumann Catheter: No Flatus: Yes Diet: Clear Liquids Ambulating: Yes Date and Time of Service: 07/16/2017 1 PM Interval History: Overall doing well. Feeling better every day. Denies nausea. Did have some heartburn this morning but it resolved with the Pepcid. Post transfusion hemoglobin and hematocrit at 4 AM was 11.1 and 34.1 respectively. At noon today her hemoglobin was 11.3 and her hematocrit was 35.3. She had several smaller bloody stools last night the last one at 2 AM until she passed several small ones this morning. The last several have been in the 15-50 mL range and have been maroon rather than bright red. She reports she is passing gas. Patient denies any significant abdominal pain. She is ambulating. She sits up and gets out of bed easily. She is hungry. She reports she tends to have a fast heart rate and a low blood pressure. Her saturations are okay until she ambulates and then she desaturates. Her white count has decreased to 15,000. Her nutritional status is not very good. Her urine output has picked up nicely. Objective : Data - Labs CBC and BMP: 07/16/17 12:02 07/16/17 04:35 - Vital Signs Vital Signs and I&O: Vital Signs - Last Taken Temperature 98.1 F 07/16/17 12:56 Pulse Rate 108 H 07/16/17 12:56 Respiratory Rate 20 07/16/17 12:56 Blood Pressure 84/50 07/16/17 12:56 Pulse Ox 92 07/16/17 12:56 Intake and Output (24hr x 4 totals) 07/14/17 07/15/17 07/16/17 07/17/17 05:59 05:59 05:59 05:59 Intake Total 3942 / 3942 3566 / 3566 3503 / 3503 240 / 240 Output Total 1000 / 1000 600 / 600 190 / 190 1135 / 1135 Balance 2942 / 2942 2966 / 2966 3313 / 3313 -895 / -895 Objective : Exam - General General Appearance: No Acute Distress, Cooperative - Respiratory Respiratory Exam: Clear to Auscultation - Bilaterally, Breathing Non Labored, Crackles (Few crackles in the bases bilaterally.) - Cardiovascular Cardiovascular Exam: RRR, No Murmur - GI/Abdominal GI/Abdominal Exam: Non Distended, Soft, Hypoactive Bowel Sounds Additional GI/Abdominal Exam Details: The dressing has been removed. The incision looks great. The abdomen is soft with incisional tenderness. No peritoneal signs. Bowel tones remained hypoactive. - Neurological Neurological Exam: Alert, Oriented x 3 - Psychiatric Psychiatric Exam: Normal Affect, Normal Mood Assessment and Plan - Patient Problems (1) Status post small bowel resection Current Visit: Yes Status: Acute Priority: High Onset Date: 07/13/17 Comment: Doing well. Passing gas. Having some bloody bowel movements. I would like to increase her diet but would like to check another hemoglobin and hematocrit at 8 PM before doing so to make sure that it is stable. If her hemoglobin and hematocrit at 8 PM are stable we'll advance her to a full liquid diet. I am going a little slow in case she has evidence of further bleeding and needs to go to the operating room. Code(s): Z90.49 - Acquired absence of other specified parts of digestive tract (2) Hemorrhage of surgical anastomosis site of digestive tract Current Visit: Yes Status: Acute Priority: High Onset Date: 07/15/17 Comment: Seems to have resolved with conservative management. Continue to follow hemoglobin and hematocrit as well as a.m. labs. I discussed all the above with the patient and the nursing staff. We will proceed as outlined. Code(s): K91.841 - Postprocedural hemorrhage of a digestive system organ or structure following other procedure
[2017-07-16] MEDS: Prochlorperazine Edisylate Inj 10mg/2ml vial IVP PRN ×2 (16:02→22:44)
[2017-07-16] MEDS: Ertapenem Inj 1 GM in Sodium Chloride 0.9% 100 ML IV SCH (16:26)
--- NOTE | 2017-07-16 17:25 | DI ---
EXAM: CT Angiography Chest Without and With Intravenous Contrast CLINICAL HISTORY: Hypoxia, dyspnea. No priors, 54 ml Isovue 370 IV contrast, 535 images. Hx smoking. : TECHNIQUE: Axial computed tomographic angiography images of the chest without and with intravenous contrast using pulmonary embolism protocol. MIP reconstructed images were created and reviewed. Coronal and sagittal reformatted images were created and reviewed. COMPARISON: CT abdomen and pelvis 07/13/17 FINDINGS: Pulmonary arteries: No pulmonary embolism. Aorta: No acute findings. No thoracic aortic aneurysm. Lungs: Bilateral lower lobe atelectasis/airspace disease. Severe emphysema. No mass. Pleural space: Small bilateral pleural effusions. No pneumothorax. Heart: Unremarkable. No cardiomegaly. No significant pericardial effusion. No evidence of RV dysfunction. Bones/joints: Superior endplate of T11 mild compression deformity and Schmorl's nodule. No dislocation. Soft tissues: Mild anasarca. Lymph nodes: Unremarkable. No enlarged lymph nodes. Intraperitoneal space: Small free air in the abdomen, likely from recent procedure. IMPRESSION: 1. No pulmonary embolism. 2. Small bilateral pleural effusions. Bilateral lower lobe atelectasis/airspace disease. 3. Severe emphysema. 4. Mild anasarca. 5. Small free air in the abdomen, likely from recent procedure.
[2017-07-16] MEDS ORDERED: FUROSEMIDE 10 MG/1 ML - 4 ML IVP ONE (18:34)
[2017-07-16 20:11] LABS: Hemoglobin [HGB] 9.7 g/dL (12.0-16.0); MEAN CORPUSCULAR HEMOGLOBIN 29.8 PG (27-31); MEAN CORPUSCULAR HGB CONC 32.3 g/dL (33-37); MEAN CORPUSCULAR VOLUME 92.3 FL (81-99); MEAN PLATELET VOLUME 9.5 FL (7.4-12.2); RED BLOOD COUNT 3.25 10^6/uL (4.20-5.40)
[2017-07-16 20:23] LABS: PLATELET MORPHOLOGY COMMENT SEE COMMENTS (NORM); RBC MORPHOLOGY COMMENT NORMAL MORPHOLOGY (NORM); WBC MORPHOLOGY COMMENT NORMAL MORPHOLOGY (NORM)
[2017-07-16 20:24] LABS: BAND NEUTROPHILS % 1 % (0-10); BASOPHILS % (MANUAL) 0 % (0-1); EOSINOPHILS % (MANUAL) 2 % (0-8); MONOCYTES % (MANUAL) 1 % (0-12); NEUTROPHILS % (MANUAL) 91 % (50-80)
[2017-07-16] MEDS: Pantoprazole Inj 40 MG in Normal Saline Flush 10 ML IVP SCH (21:17)
[2017-07-16] MEDS ORDERED: LIDOCAINE HCL 2 % 10 ML JELLY URO-JECT TOPICAL PRN (23:58)
--- NOTE | 2017-07-17 00:24 | PDOC(PROG) ---
Date and Time of Service: 07/17/2017 12:16 AM Interval History: I have talked to the nursing staff and seen this patient several times between 8 PM and now. I was called at 8 PM that her hemoglobin and hematocrit had decreased from 11 and 35 to 9.7 and 30. She had only had a few small smears of old dark blood. Shortly thereafter she had several large bowel movements of old dark blood. One was 400 mL, one was 350 mL, and one was about 100 mL. This was not bright red blood like she had last p.m. Patient felt nauseated and had some foamy emesis. There was no blood. Most recently her blood pressure is 90/60. Her heart rate is presently 96. Patient had not really passed enough blood per rectum to account for her drop in hematocrit and her blood transfusions, until now. I told the patient I can' t tell whether she is evacuating old blood or if she has ongoing bleeding. I told her the options are to take her back to surgery and takedown and redo her anastomosis as all evidence points to an anastomotic bleed. The other is to give her two more units of blood and check a posttransfusion hemoglobin and hematocrit. I would also give her a unit of fresh frozen plasma. If we go this route she would have to show an improvement of her hemoglobin and hematocrit after her transfusions and they would have to remain stable. If they drop again I think I would be obligated to take her back to surgery and redo her anastomosis. At the present time patient does not want to return to the operating room. She is stable. I have told her we may need to do this in the middle of the night. She accepts that. Hopefully her bleeding has stopped but only time will tell. Objective : Data - Labs CBC and BMP: 07/16/17 20:08 07/16/17 04:35 - Vital Signs Vital Signs and I&O: Vital Signs - Last Taken Temperature 97.9 F 07/16/17 23:50 Pulse Rate 98 07/16/17 23:50 Respiratory Rate 15 07/16/17 23:50 Blood Pressure 95/60 07/16/17 23:50 Pulse Ox 93 07/16/17 23:50 Intake and Output (24hr x 4 totals) 07/14/17 07/15/17 07/16/17 07/17/17 05:59 05:59 05:59 05:59 Intake Total 3942 / 3942 3566 / 3566 3503 / 3503 2624 / 2624 Output Total 1000 / 1000 600 / 600 190 / 190 4995 / 4995 Balance 2942 / 2942 2966 / 2966 3313 / 3313 -2371 / -2371 Objective : Exam - General General Appearance: No Acute Distress, Cooperative - Respiratory Respiratory Exam: Clear to Auscultation - Bilaterally, Breathing Non Labored - Cardiovascular Cardiovascular Exam: RRR, No Murmur - GI/Abdominal GI/Abdominal Exam: Normal Bowel Sounds, Non Distended, Soft Additional GI/Abdominal Exam Details: No clinical evidence of intra-abdominal bleeding. Assessment and Plan - Patient Problems (1) Status post small bowel resection Current Visit: Yes Status: Acute Priority: High Onset Date: 07/13/17 Comment: Findings consistent with a postoperative anastomotic bleed. Question whether ongoing bleeding or evacuating old blood. We'll transfuse and monitor at this time as the patient prefers to avoid operation if at all possible. I have told her that any further significant decline in her hemoglobin and hematocrit she will have to go back surgery. She excepts this. Code(s): Z90.49 - Acquired absence of other specified parts of digestive tract (2) Hemorrhage of surgical anastomosis site of digestive tract Current Visit: Yes Status: Acute Priority: High Onset Date: 07/15/17 Comment: See above. Code(s): K91.841 - Postprocedural hemorrhage of a digestive system organ or structure following other procedure
[2017-07-17] MEDS: D5-1/2NS + 20mEq KCL 1,000 ML PRIMARY IV SCH ×4 (00:25→15:44)
[2017-07-17] MEDS: Sodium Chloride 0.9% 500 ML PRIMARY IV ONE ×2 (00:27→03:07)
[2017-07-17 02:19] LABS: BASOPHILS # (AUTO) 0.03 10*3/UL; BASOPHILS % (AUTO) 0.2 % (0-1); EOSINOPHILS # (AUTO) 0.25 10*3/UL; Hemoglobin [HGB] 11.8 g/dL (12.0-16.0); LYMPHOCYTES # (AUTO) 0.52 10*3/uL; MEAN CORPUSCULAR HEMOGLOBIN 30.3 PG (27-31); MEAN CORPUSCULAR HGB CONC 33.7 g/dL (33-37); MEAN PLATELET VOLUME 9.7 FL (7.4-12.2); MONOCYTES # (AUTO) 0.49 10*3/UL (0.3-0.8); MONOCYTES % (AUTO) 3.9 % (5-15); NEUTROPHILS % (AUTO) 89.6 % (50-80); RED BLOOD COUNT 3.89 10^6/uL (4.20-5.40)
[2017-07-17 02:23] LABS: PLATELET MORPHOLOGY COMMENT NORMAL MORPHOLOGY (NORM); RBC MORPHOLOGY COMMENT NORMAL MORPHOLOGY (NORM); WBC MORPHOLOGY COMMENT NORMAL MORPHOLOGY (NORM)
[2017-07-17] MEDS: Acetaminophen 1000mg Inj 1,000 MG/100 ML VIAL IV SCH ×3 (03:07→17:33)
[2017-07-17] MEDS: HYDROmorphone 2 MG/1 ML IVP PRN ×4 (03:08→20:21)
[2017-07-17 06:11] LABS: Hematocrit [HCT] 36.4 % (37.0-47.0); Hemoglobin [HGB] 12.1 g/dL (12.0-16.0); MEAN CORPUSCULAR HEMOGLOBIN 29.9 PG (27-31); MEAN CORPUSCULAR HGB CONC 33.2 g/dL (33-37); MEAN CORPUSCULAR VOLUME 89.9 FL (81-99); MEAN PLATELET VOLUME 9.4 FL (7.4-12.2); RED BLOOD COUNT 4.05 10^6/uL (4.20-5.40)
[2017-07-17 06:27] LABS: BLOOD UREA NITROGEN 8 mg/dL (7-22); SERUM ALBUMIN 2.4 g/dL (3.5-4.8)
--- NOTE | 2017-07-17 07:50 | PDOC(PROG) ---
Interval History: Patient is doing well apparently she had saw a little bit of more blood loss with the old blood BMs and was transfused 2 more units overnight and H&H is stable this morning and she has no complaints. No nausea no vomiting CT scan of her chest revealed severe emphysema but no PE or pneumonia Objective : Data - Labs CBC and BMP: 07/17/17 06:08 07/17/17 06:08 Objective : Exam - General General Appearance: No Acute Distress, Cooperative - Respiratory Respiratory Exam: Clear to Auscultation - Bilaterally, Breathing Non Labored, Normal To Percussion, Normal to Percussion and Palpation - Cardiovascular Cardiovascular Exam: RRR, No Murmur, No Clicks, No Gallops, No Rubs, PMI Non- Displaced - GI/Abdominal GI/Abdominal Exam: Normal Bowel Sounds, Non Tender, Non Distended, Soft, No Masses, No Hepatomegaly, No Splenomegaly, No Organomegaly Assessment and Plan - Patient Problems (1) Exacerbation of Crohn's disease Current Visit: Yes Status: Acute Comment: Status post resection patient has had some small bleeds transfuse total of 4 units of blood H&H this morning is stable defer further planning a recommendation in this regards to Dr. Fowler general surgery Code(s): K50.90 - Crohn's disease, unspecified, without complications (2) COPD (chronic obstructive pulmonary disease) Current Visit: Yes Status: Acute Comment: CT scan no PE no pneumonia but severe emphysema continue duo nebs when necessary patient is allergic to prednisone we'll also continue Spiriva and continuous oxygen Code(s): J44.9 - Chronic obstructive pulmonary disease, unspecified (3) Hypoalbuminemia due to protein-calorie malnutrition Current Visit: Yes Status: Acute Comment: Most likely secondary to poor nutrition Code(s): E46 - Unspecified protein-calorie malnutrition (4) Hypotension Current Visit: Yes Status: Acute Comment: This seems to be a chronic problem for her she was given 2 infusions of albumin blood pressure stable patient also IV fluids Code(s): I95.9 - Hypotension, unspecified
[2017-07-17] MEDS: Pantoprazole Inj 40 MG in Normal Saline Flush 10 ML IVP SCH ×3 (09:34→21:40)
[2017-07-17] MEDS: LEVALBUTEROL HCL 1.25 MG/3 ML NEB PRN (10:58)
[2017-07-17] MEDS: Patch Removal PATCH TRANSDERM SCH (11:11)
[2017-07-17] MEDS: NICOTINE 14 MG /DAY PATCH TRANSDERM SCH (11:11)
[2017-07-17 11:15] LABS: Hematocrit [HCT] 39.1 % (37.0-47.0); Hemoglobin [HGB] 12.8 g/dL (12.0-16.0)
[2017-07-17] MEDS ORDERED: FUROSEMIDE 10 MG/1 ML - 2 ML VIAL IVP ONE (12:13)
--- NOTE | 2017-07-17 12:34 | PDOC(PROG) ---
Subjective Post Op Day: 4 Pain Management: IV Dilaudid and Tylenol Baumann Catheter: No Flatus: Yes Diet: NPO (I have just ordered clear liquids.) Ambulating: Yes Date and Time of Service: 07/17/2017 12:15 PM Interval History: Please see my previous note from just after midnight. Patient had approximately 100 mL stool at 3 AM. This morning she had 100 mL followed by a 50 mL stool. Just now she had approximately another 150 of dark liquid stool which obviously has old blood in it. There has been no bright red blood per rectum. Her posttransfusion hemoglobin and hematocrit were 11.8 and 35. 4 hours later they were 12 and 36. At 11 AM her hemoglobin is 12.8 and her hematocrit is 39.1. She has had a total of 4 units of packed red blood cells and 2 units of fresh frozen plasma. Her heart rate is in the 90s. Her blood pressures have been in the 90s as well. Other than being hungry the patient has no specific complaints. Her urine output was good throughout the night but has tapered off today. I had a long discussion again with the patient regarding the options. At the present time I feel it is best to sit tight. If she continues to pass bloody stools and if she drops her hemoglobin and hematocrit it will be time to proceed with intervention. I will initially plan colonoscopic evaluation of her anastomosis with control of the bleeding as possible. If that is unsuccessful she will then need to return to the operating room for revision of her anastomosis. I am hopeful that the bleeding has stopped with her increased hemoglobin and hematocrit. She had dilated bowel at the time of surgery. I think she is just evacuating the old blood. Objective : Data - Labs CBC and BMP: 07/17/17 11:10 07/17/17 06:08 - Vital Signs Vital Signs and I&O: Vital Signs - Last Taken Temperature 98.8 F 07/17/17 11:00 Pulse Rate 97 07/17/17 11:00 Respiratory Rate 18 07/17/17 11:00 Blood Pressure 99/69 07/17/17 11:00 Pulse Ox 91 07/17/17 11:15 Intake and Output (24hr x 4 totals) 07/15/17 07/16/17 07/17/17 07/18/17 05:59 05:59 05:59 05:59 Intake Total 3566 / 3566 3503 / 3503 3173 / 3173 Output Total 600 / 600 190 / 190 5345 / 5345 300 / 300 Balance 2966 / 2966 3313 / 3313 -2172 / -2172 -300 / -300 Objective : Exam - General General Appearance: No Acute Distress, Cooperative - Respiratory Respiratory Exam: Clear to Auscultation - Bilaterally, Breathing Non Labored - Cardiovascular Cardiovascular Exam: RRR, No Murmur - GI/Abdominal GI/Abdominal Exam: Normal Bowel Sounds, Non Distended, Soft Additional GI/Abdominal Exam Details: The incision looks good. There is some mild diffuse abdominal tenderness. No signs of intra-abdominal bleeding. - Neurological Neurological Exam: Alert, Oriented x 3 - Psychiatric Psychiatric Exam: Normal Affect, Normal Mood Assessment and Plan - Patient Problems (1) Status post small bowel resection Current Visit: Yes Status: Acute Priority: High Onset Date: 07/13/17 Comment: Anastomotic bleeding appears to have stopped judging by her current hemoglobin and hematocrit. Continue to monitor carefully. For evidence of future bleeding we will need to plan colonoscopic evaluation and/or surgical intervention. I discussed this with the patient in detail. She agrees to proceed as outlined. We will start clear liquids. Continue gentle diuresis as the patient seems fluid long. Follow labs. Code(s): Z90.49 - Acquired absence of other specified parts of digestive tract (2) Hemorrhage of surgical anastomosis site of digestive tract Current Visit: Yes Status: Acute Priority: High Onset Date: 07/15/17 Comment: See above. Code(s): K91.841 - Postprocedural hemorrhage of a digestive system organ or structure following other procedure
[2017-07-17] MEDS: Ertapenem Inj 1 GM in Sodium Chloride 0.9% 100 ML IV SCH (15:44)
[2017-07-17] MEDS: Prochlorperazine Edisylate Inj 10mg/2ml vial IVP PRN (16:36)
[2017-07-17 18:02] LABS: BASOPHILS # (AUTO) 0.02 10*3/UL; BASOPHILS % (AUTO) 0.2 % (0-1); EOSINOPHILS # (AUTO) 0.18 10*3/UL; EOSINOPHILS % (AUTO) 1.7 % (0-8); Hematocrit [HCT] 38.3 % (37.0-47.0); Hemoglobin [HGB] 12.6 g/dL (12.0-16.0); LYMPHOCYTES # (AUTO) 0.73 10*3/uL; MEAN CORPUSCULAR HEMOGLOBIN 29.8 PG (27-31); MEAN CORPUSCULAR HGB CONC 32.9 g/dL (33-37); MEAN CORPUSCULAR VOLUME 90.5 FL (81-99); MEAN PLATELET VOLUME 9.3 FL (7.4-12.2); MONOCYTES # (AUTO) 0.74 10*3/UL (0.3-0.8); MONOCYTES % (AUTO) 6.9 % (5-15); NEUTROPHILS # (AUTO) 8.98 10*3/UL; NEUTROPHILS % (AUTO) 84.1 % (50-80); RED BLOOD COUNT 4.23 10^6/uL (4.20-5.40)
[2017-07-17 18:06] LABS: PLATELET MORPHOLOGY COMMENT NORMAL MORPHOLOGY (NORM); RBC MORPHOLOGY COMMENT NORMAL MORPHOLOGY (NORM); WBC MORPHOLOGY COMMENT NORMAL MORPHOLOGY (NORM)
[2017-07-17] MEDS: ONDANSETRON 4 MG/2 ML VIAL IVP PRN (20:25)
[2017-07-18] MEDS: Acetaminophen 1000mg Inj 1,000 MG/100 ML VIAL IV SCH ×2 (01:16→09:08)
[2017-07-18] MEDS: Prochlorperazine Edisylate Inj 10mg/2ml vial IVP PRN (01:21)
[2017-07-18] MEDS: HYDROmorphone 2 MG/1 ML IVP PRN ×2 (01:21→04:41)
[2017-07-18 05:11] LABS: BASOPHILS # (AUTO) 0.02 10*3/UL; BASOPHILS % (AUTO) 0.2 % (0-1); EOSINOPHILS % (AUTO) 2.3 % (0-8); Hematocrit [HCT] 41.7 % (37.0-47.0); Hemoglobin [HGB] 13.5 g/dL (12.0-16.0); LYMPHOCYTES # (AUTO) 0.83 10*3/uL; MEAN CORPUSCULAR HEMOGLOBIN 29.6 PG (27-31); MEAN CORPUSCULAR HGB CONC 32.4 g/dL (33-37); MEAN CORPUSCULAR VOLUME 91.4 FL (81-99); MEAN PLATELET VOLUME 9.8 FL (7.4-12.2); MONOCYTES % (AUTO) 8.1 % (5-15); NEUTROPHILS # (AUTO) 6.87 10*3/UL; NEUTROPHILS % (AUTO) 79.6 % (50-80); RED BLOOD COUNT 4.56 10^6/uL (4.20-5.40)
[2017-07-18 05:25] LABS: BLOOD UREA NITROGEN 5 mg/dL (7-22); BUN/CREATININE RATIO 8.33 (6-20); SERUM ALBUMIN 2.9 g/dL (3.5-4.8)
[2017-07-18 05:26] LABS: PLATELET MORPHOLOGY COMMENT NORMAL MORPHOLOGY (NORM); RBC MORPHOLOGY COMMENT NORMAL MORPHOLOGY (NORM); WBC MORPHOLOGY COMMENT NORMAL MORPHOLOGY (NORM)
[2017-07-18] MEDS ORDERED: POTASSIUM CHLORIDE 20 MEQ TAB PO SCH (09:00)
[2017-07-18] MEDS: Pantoprazole Inj 40 MG in Normal Saline Flush 10 ML IVP SCH (09:08)
--- NOTE | 2017-07-18 10:33 | PDOC(PROG) ---
Interval History: Patient is doing great today she is eating her meal had a BM which was formed no diarrhea no bright red blood she has no complaints Objective : Data - Labs CBC and BMP: 07/18/17 04:22 07/18/17 04:22 Objective : Exam - General General Appearance: No Acute Distress, Cooperative - Respiratory Respiratory Exam: Clear to Auscultation - Bilaterally, Breathing Non Labored, Normal To Percussion, Normal to Percussion and Palpation - Cardiovascular Cardiovascular Exam: RRR, No Murmur, No Clicks, No Gallops, No Rubs, PMI Non- Displaced - GI/Abdominal GI/Abdominal Exam: Normal Bowel Sounds, Non Tender, Non Distended, Soft, No Masses, No Hepatomegaly, No Splenomegaly, No Organomegaly Assessment and Plan - Patient Problems (1) Exacerbation of Crohn's disease Current Visit: Yes Status: Acute Comment: Status post resection with the postop bleed now seems to be stopped hemoglobin is stable patient eating full liquid diet with one formed stool this morning no bright red blood per rectum defer further planning per Dr. Fowler Code(s): K50.90 - Crohn's disease, unspecified, without complications (2) COPD (chronic obstructive pulmonary disease) Current Visit: Yes Status: Acute Comment: Stable at present time continue duo nebs lungs are clear Code(s): J44.9 - Chronic obstructive pulmonary disease, unspecified (3) Hypoalbuminemia due to protein-calorie malnutrition Current Visit: Yes Status: Acute Comment: Encourage nutrition Code(s): E46 - Unspecified protein-calorie malnutrition (4) Hypotension Current Visit: Yes Status: Acute Comment: Improved Code(s): I95.9 - Hypotension, unspecified (5) Hypokalemia Current Visit: Yes Status: Acute Comment: Replacement IV fluids and by mouth Code(s): E87.6 - Hypokalemia
[2017-07-18] MEDS ORDERED: HYDROcodone-APAP 5 MG -325 MG TABLET PO PRN (10:42)
[2017-07-18] MEDS: NICOTINE 14 MG /DAY PATCH TRANSDERM SCH (11:41)
[2017-07-18] MEDS: Patch Removal PATCH TRANSDERM SCH (11:42)
[2017-07-18] MEDS: D5-1/2NS + 20mEq KCL 1,000 ML PRIMARY IV SCH (12:43)
--- NOTE | 2017-07-18 12:44 | PDOC(PROG) ---
Subjective Post Op Day: 5 Pain Management: PO Baumann Catheter: No Flatus: Yes Diet: full liquids. Advance to regular. Ambulating: Yes Date and Time of Service: 12:30 PM 07/18/2016 Interval History: Reports she feels much better today. Tolerating a full liquid diet. Feels ready to try some solid food. Has passed some more liquid stool with coffee grounds. Also passed some semi-formed stool. She is passing gas. She is ambulating. She denies any significant abdominal pain. Her hemoglobin and hematocrit have stabilized nicely. Her white count is normal. All evidence shows that the anastomotic bleeding has stopped. Objective : Data - Labs CBC and BMP: 07/18/17 04:22 07/18/17 04:22 - Vital Signs Vital Signs and I&O: Vital Signs - Last Taken Temperature 98.1 F 07/18/17 11:00 Pulse Rate 83 07/18/17 11:00 Respiratory Rate 14 07/18/17 11:00 Blood Pressure 109/71 07/18/17 11:00 Pulse Ox 97 07/18/17 11:00 Intake and Output (24hr x 4 totals) 07/16/17 07/17/17 07/18/17 07/19/17 05:59 05:59 05:59 05:59 Intake Total 3503 / 3503 3173 / 3173 2989 / 2989 1220 / 1220 Output Total 190 / 190 5345 / 5345 3650 / 3650 1450 / 1450 Balance 3313 / 3313 -2172 / -2172 -661 / -661 -230 / -230 Objective : Exam - General General Appearance: No Acute Distress, Cooperative - Respiratory Respiratory Exam: Clear to Auscultation - Bilaterally, Breathing Non Labored - Cardiovascular Cardiovascular Exam: RRR, No Murmur - GI/Abdominal GI/Abdominal Exam: Normal Bowel Sounds, Non Distended, Soft Additional GI/Abdominal Exam Details: The incision looks good. Incisional tenderness only. Nondistended. - Neurological Neurological Exam: Alert, Oriented x 3 - Psychiatric Psychiatric Exam: Normal Affect, Normal Mood Assessment and Plan - Patient Problems (1) Status post small bowel resection Current Visit: Yes Status: Acute Priority: High Onset Date: 07/13/17 Comment: Stable. Advanced to regular diet. Check lab again in the morning. As long as her hemoglobin and hematocrit remained stable she can be discharged home for outpatient follow-up. Will transfer her out of the ICU. Code(s): Z90.49 - Acquired absence of other specified parts of digestive tract (2) Hemorrhage of surgical anastomosis site of digestive tract Current Visit: Yes Status: Acute Priority: High Onset Date: 07/15/17 Comment: Anastomotic bleeding has stopped. Code(s): K91.841 - Postprocedural hemorrhage of a digestive system organ or structure following other procedure
[2017-07-18] MEDS ORDERED: ONDANSETRON 4 MG/2 ML VIAL IVP PRN (13:09)
[2017-07-18] MEDS ORDERED: Prochlorperazine Edisylate Inj 10mg/2ml vial IVP PRN (13:09)
[2017-07-18] MEDS ORDERED: LEVALBUTEROL HCL 1.25 MG/3 ML NEB PRN (13:09)
[2017-07-18] MEDS ORDERED: NORMAL SALINE 10 ML SYRINGE FLUSH IVP PRN (13:09)
[2017-07-18] MEDS: HYDROcodone-APAP 5 MG -325 MG TABLET PO PRN (18:32)
[2017-07-18] MEDS: POTASSIUM CHLORIDE 20 MEQ TAB PO SCH (20:20)
[2017-07-18] MEDS: PANTOPRAZOLE 40 MG TABLET PO SCH (20:20)
[2017-07-18] MEDS ORDERED: PANTOPRAZOLE 40 MG TABLET PO SCH (21:00)
[2017-07-19 05:02] LABS: BASOPHILS # (AUTO) 0.03 10*3/UL; BASOPHILS % (AUTO) 0.3 % (0-1); EOSINOPHILS # (AUTO) 0.26 10*3/UL; EOSINOPHILS % (AUTO) 2.5 % (0-8); Hematocrit [HCT] 41.2 % (37.0-47.0); Hemoglobin [HGB] 13.2 g/dL (12.0-16.0); LYMPHOCYTES # (AUTO) 0.76 10*3/uL; MEAN CORPUSCULAR HEMOGLOBIN 29.4 PG (27-31); MEAN CORPUSCULAR VOLUME 91.8 FL (81-99); MEAN PLATELET VOLUME 9.4 FL (7.4-12.2); MONOCYTES # (AUTO) 0.82 10*3/UL (0.3-0.8); NEUTROPHILS # (AUTO) 8.36 10*3/UL; NEUTROPHILS % (AUTO) 81.3 % (50-80); RED BLOOD COUNT 4.49 10^6/uL (4.20-5.40)
[2017-07-19 05:26] LABS: BLOOD UREA NITROGEN 5 mg/dL (7-22)
[2017-07-19 05:34] LABS: PLATELET MORPHOLOGY COMMENT NORMAL MORPHOLOGY (NORM); RBC MORPHOLOGY COMMENT NORMAL MORPHOLOGY (NORM); WBC MORPHOLOGY COMMENT NORMAL MORPHOLOGY (NORM)
[2017-07-19 08:12] VITALS: TEMP 98.2; O2SAT 90
[2017-07-19] MEDS: HYDROcodone-APAP 5 MG -325 MG TABLET PO PRN (08:16)
[2017-07-19] MEDS: PANTOPRAZOLE 40 MG TABLET PO SCH (08:17)
[2017-07-19] MEDS: POTASSIUM CHLORIDE 20 MEQ TAB PO SCH (08:17)
[2017-07-19] MEDS ORDERED: Patch Removal PATCH TRANSDERM SCH (11:00)
[2017-07-19] MEDS ORDERED: NICOTINE 14 MG /DAY PATCH TRANSDERM SCH (11:00)
[2017-07-19 11:14] VITALS: BP 105/67; RESP 21
--- NOTE | 2017-07-19 11:53 | PDOC(PROG) ---
Subjective Post Op Day: postop day 6 Pain Management: PO Baumann Catheter: No Flatus: Yes Diet: Regular Date and Time of Service: 07/19/2017 at 1155 Interval History: Patient states she is feeling well. She no longer has abdominal pain that brought her to the hospital. She no longer is passing bloody stools. Objective : Data - Labs CBC and BMP: 07/19/17 04:51 07/19/17 04:51 - Vital Signs Vital Signs and I&O: Vital Signs - Last Taken Temperature 98.2 F 07/19/17 11:13 Pulse Rate 100 07/19/17 11:13 Respiratory Rate 21 07/19/17 11:13 Blood Pressure 105/67 07/19/17 11:13 Pulse Ox 90 07/19/17 11:13 Intake and Output (24hr x 4 totals) 07/17/17 07/18/17 07/19/17 07/20/17 05:59 05:59 05:59 05:59 Intake Total 3173 / 3173 2989 / 2989 2570 / 2570 360 / 360 Output Total 5345 / 5345 3650 / 3650 4540 / 4540 300 / 300 Balance -2172 / -2172 -661 / -661 -1970 / -1970 60 / 60 Objective : Exam - General General Appearance: No Acute Distress, Cooperative - Neck Neck Exam: Full ROM - Respiratory Respiratory Exam: Clear to Auscultation - Bilaterally - Cardiovascular Cardiovascular Exam: RRR - GI/Abdominal GI/Abdominal Exam: Normal Bowel Sounds, Non Tender, Non Distended, Soft ( Incision is clean dry nonerythematous. There is some staple line inflammation no signs of actual infection) Assessment and Plan - Patient Problems (1) Small intestine obstruction Current Visit: Yes Status: Acute Code(s): K56.609 - Unspecified intestinal obstruction, unspecified as to partial versus complete obstruction (2) Crohns disease Current Visit: Yes Status: Acute Code(s): K50.90 - Crohn's disease, unspecified, without complications (3) COPD (chronic obstructive pulmonary disease) Current Visit: Yes Status: Acute Code(s): J44.9 - Chronic obstructive pulmonary disease, unspecified (4) Status post small bowel resection Current Visit: Yes Status: Acute Priority: High Onset Date: 07/13/17 Code(s): Z90.49 - Acquired absence of other specified parts of digestive tract Support Text: Overall patient is doing very well. She is having no problems. Is okay to be discharged home. Will follow with me in one week. She will need to see Dr. Mckinley (her gastroneurologist) for ongoing management of Crohn's disease.
--- NOTE | 2017-07-19 12:31 | DCSUMMARY ---
Hospitalization Summary Admit Date: 07/13/2017 Discharge Date: 07/19/17 Primary Diagnosis:: small bowel distraction with Crohn's disease Hospital Course: This very pleasant 57-year-old female who presented with a small bowel obstruction related to Crohn's disease. The patient was taken operating room by Dr. 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 See his surgical note for further details. Patient did very well postoperatively, her diet was advanced, her pain was controlled, and her nausea and vomiting were controlled. She had no fevers and no evidence of any postoperative infection. She had what appeared to be anastomotic bleeding, required 4 units of blood, but this slow down and likely stopped and her discharge hemoglobin is 13.2. Patient was hypoxic, and has COPD. She has palmar erythema. She required 3 L per nasal cannula to maintain her oxygen saturations. Room air saturation challenge was 73% at room air. No evidence of exacerbation. Today, the patient states that she is doing quite well, no nausea, vomiting, chest pain, or shortness breath. She is ready to go home. Assessment and Plan: 1. As per discharge assessments noted 2. Disposition: Patient is discharged home. 3. Condition on discharge, stable and improved. 4. Diet: regular diet 5. Activities: Advised to continue to quit smoking. 6. Follow-Up: 1. Dr. Mccallum in one week 2. Dr. Wynn on the 7. Medications at the Time of Discharge: Home Medications 3 Medication Instructions Recorded Confirmed Type HYDROcodone/APAP 5/325 Tab [[place] 1 - 2 tab PO Q4H PRN #60 tab 07/19/17 Rx 5/325 Tab] Nicotine 14mg Patch [Nicoderm CQ 1 patch TRANSDERM DAILY@1100 #30 07/19/17 Rx 14mg Patch] patch Ondansetron Odt [Zofran ODT] 4 mg PO Q6H PRN #30 tab.rapdis 07/19/17 Rx 8. Time, care, counseling and coordination of care for this discharge is greater than 30 minutes. Exam - Vitals Vital Signs: Vital Signs Temperature 98.2 F Temperature Source Temporal Artery Scan Pulse Rate [Apical] 86 Pulse Rate [Pulse Oximeter] 100 Pulse Rate 80 Respiratory Rate 21 Blood Pressure [Left Arm] 105/67 Blood Pressure [Right Arm] 109/71 Blood Pressure 98/65 Pulse Ox 90 Oxygen Flow Rate 3 Oxygen Delivery Method Nasal Cannula Height 5 ft 8 in Weight 103 lb 3.2 oz - General General Appearance: No Acute Distress, Cooperative - Eye Eye Exam: POSITIVE: No Scleral Icterus - ENT ENT Exam: POSITIVE: Mucous Membranes Moist - Respiratory Respiratory Exam: POSITIVE: Clear to Auscultation - Bilaterally, Breathing Non Labored - Cardiovascular Cardiovascular Exam: POSITIVE: RRR, No Murmur, No Clicks, No Gallops, No Rubs, No JVD - GI/Abdominal GI/Abdominal Exam: POSITIVE: Normal Bowel Sounds, Non Tender, Non Distended, Soft Additional GI/Abdominal Exam Details: Barbara are on incision. Incision is clean, dry, intact - Extremities Extremities Exam: POSITIVE: No Edema Present, No Cyanosis Present, Clubbing Present - Neurological Neurological Exam: POSITIVE: Alert, Oriented x 3, No Facial Droop, Speech Intact / Clear, Moves All Extremities Equally - Psychiatric Psychiatric Exam: POSITIVE: Normal Affect, Normal Mood - Integumentary Additional Integumentary Exam Details: Palmar erythema is present. Data Peritnent Studies: 07/17/17 07/18/17 07/19/17 06:08 04:22 04:51 WBC 10.28 Hgb 13.2 Hct 41.2 Plt Count 340 Neut % (Auto) 81.3 H PT 10.7 INR 1.01 Sodium Potassium Chloride Carbon Dioxide Anion Gap BUN Creatinine BUN/Creatinine Ratio Glucose Calculated Osmolality Calcium Total Bilirubin 0.5 AST 17 ALT 21 Alkaline Phosphatase 91 Total Protein 5.3 L Albumin 2.9 L Globulin 2.4 L 07/19/17 04:51 WBC Hgb Hct Plt Count Neut % (Auto) PT INR Sodium 137 D Potassium 4.3 Chloride 102 Carbon Dioxide 29 Anion Gap 6 BUN 5 L Creatinine 0.5 BUN/Creatinine Ratio 10.00 Glucose 78 Calculated Osmolality 279.0 Calcium 8.7 Total Bilirubin AST ALT Alkaline Phosphatase Total Protein Albumin Globulin [address] [place] [address] PH: DD: [phone] FAX: [phone] ~DIAGNOSTIC IMAGING REPORT~ Patient: SAMREEN HO : 1960 Sex: F Age: 57 Exam Name: CT CTA Chest Non-Coronary [facility] Exam Date: 07/16/17 Report # : [id number] CPT Code: 82020 EMR/MR #: [id number] Ordering: JACQUELYN KENDALL Admiting: JACQUELYN KENDALL MD. Primary: TALAT MADSEN MD. Attending: Hola Patel MD Signed EXAM: CT Angiography Chest Without and With Intravenous Contrast CLINICAL HISTORY: Hypoxia, dyspnea. No priors, 54 ml Isovue 370 IV contrast, 535 images. Hx smoking. : TECHNIQUE: Axial computed tomographic angiography images of the chest without and with intravenous contrast using pulmonary embolism protocol. MIP reconstructed images were created and reviewed. Coronal and sagittal reformatted images were created and reviewed. COMPARISON: CT abdomen and pelvis 07/13/17 FINDINGS: Pulmonary arteries: No pulmonary embolism. Aorta: No acute findings. No thoracic aortic aneurysm. Lungs: Bilateral lower lobe atelectasis/airspace disease. Severe emphysema. No mass. Pleural space: Small bilateral pleural effusions. No pneumothorax. Heart: Unremarkable. No cardiomegaly. No significant pericardial effusion. No evidence of RV dysfunction. Bones/joints: Superior endplate of T11 mild compression deformity and Schmorl's nodule. No dislocation. Soft tissues: Mild anasarca. Lymph nodes: Unremarkable. No enlarged lymph nodes. Intraperitoneal space: Small free air in the abdomen, likely from recent procedure. IMPRESSION: 1. No pulmonary embolism. 2. Small bilateral pleural effusions. Bilateral lower lobe atelectasis/airspace disease. 3. Severe emphysema. 4. Mild anasarca. 5. Small free air in the abdomen, likely from recent procedure. Dictated By: Scott Vale MD Signed By: 07/16/17 1725 Scott Vale MD [address] [facility] [place] [address] PH: DD: [phone] FAX: [phone] ~DIAGNOSTIC IMAGING REPORT~ Patient: SAMREEN HO : 1960 Sex: F Age: 57 Exam Name: CT Abdomen/Pelvis WO Contrast Exam Date: 07/13/17 Report # : [id number] CPT Code: 52014 EMR/MR #: [id number] Ordering: DANA WYNN Admiting: JACQUELYN KENDALL MD. Primary: TALAT MADSEN MD. Attending: JACQUELYN KENDALL MD. Signed CT Abdomen/Pelvis WO Contrast,07/13/2017 10:54 AM: Clinical History: Crohn's disease and symptoms of bowel obstruction. Previous Exam: August 02, 2007 Findings: Multiple helically acquired CT images are obtained through the abdomen and pelvis following the oral administration of Gastrografin. There was poor progression of Gastrografin throughout. There are multiple dilated, fluid-filled loops of small bowel throughout with maximum small bowel diameter measuring approximately 4.5 cm. There is fluid within the deep pelvis. There is also a transition point within the right lower quadrant approximately 10 cm from the terminal ileum in the region of some postsurgical change consistent with a high-grade obstruction. The colon is completely decompressed without any significant amount of air. The liver and gallbladder are unremarkable although there is some layering density within the gallbladder. The spleen, adrenals and kidneys are unremarkable. Pancreas is also unremarkable. Are unremarkable. Impression: High-grade obstruction with a transition point in the right lower quadrant approximately 10 cm from the terminal ileum. Dictated By: 07/13/17 1521 ANDREAS PATEL MD. Signed By: 07/13/17 1531 ANDREAS PATEL MD. Patient Problems - Patient Problem List (1) Small intestine obstruction Current Visit: Yes Status: Acute Code(s): K56.609 - Unspecified intestinal obstruction, unspecified as to partial versus complete obstruction Category: Medical (2) Crohns disease Current Visit: Yes Status: Acute Code(s): K50.90 - Crohn's disease, unspecified, without complications Qualifiers: Gastrointestinal tract location: small intestine Digestive disease complication type: with fistula Qualified Code(s): K50.013 - Crohn's disease of small intestine with fistula Category: Medical (3) COPD (chronic obstructive pulmonary disease) Current Visit: Yes Status: Acute Code(s): J44.9 - Chronic obstructive pulmonary disease, unspecified Qualifiers: COPD type: emphysema Emphysema type: panlobular Qualified Code(s): J43.1 - Panlobular emphysema Category: Medical
== END 2017-07-19 13:34 | disposition home or self-care (01) | DRG 330 ==
LOC: MED/SURG 09:52 → OPS 15:08 → MED/SURG 19:35 → ICU 07-15 20:17 → MED/SURG 07-18 12:47
PROVIDERS: ADMIT Internal Medicine; ATTEND Surgery